=== PATIENT | male | born 1970 ===

== ENCOUNTER 2020-10-26 11:18 | Emergency (ER) | payer MEDICAID, SELFPAY ==
[2020-10-26 12:53] VITALS: BP 133/86; PULSE 83; RESP 16; TEMP 36.8; O2SAT 99; BMI 28.3
--- NOTE | 2020-10-26 14:10 | ED.GENADULT ---
HPI - General Adult General Chief complaint: Upper Respiratory Symptoms Stated complaint: COVID SYMPTOMS Time Seen by Provider: 10/26/20 12:31 Source: patient Mode of arrival: ambulatory Limitations: no limitations History of Present Illness HPI narrative: 50 y/o presents with his significant other with headaches, congestion, body aches, fatigue and diarrhea. He was recently around someone who was later diagnosed with COVID-19. He denies SOB, DONNELLY, or chest pain. He has not taken any mediations for body aches. He denies fevers at home. MD complaint: flu-like symptoms Onset (ago): day(s) (1) Location: head and back Radiation: non-radiation Severity: moderate Quality: aching Pain Consistency: intermittent Relieving factors: rest Exacerbating factors: movement Associated symptoms: headaches and malaise Treatments prior to arrival: none Related Data Allergies Allergy/AdvReac Type Severity Reaction Status Date / Time No Known Allergies Allergy Verified 10/26/20 12:56 Review of Systems Review of Systems: Constitutional: No Fever, No Chills Cardiovascular: No Chest Pain, No SOB, No Orthopnea, No Edema Respiratory: No Cough, No Sputum, No Wheezing, No dyspnea Gastrointestinal: + Nausea, No Vomiting, + Diarrhea, No abdominal Pain Genitourinary: No Dysuria, No Urinary Frequency, No Hematuria Musculoskeletal: No joint pain, + Myalgias Skin: No Skin Lesions, No rash Neuro: + Weakness, No Numbness, No Dizziness, + Headache Psych: No Anxiety/Panic, No Depression Heme/Lymph: No Bruising, No Lymphadenopathy Endocrine: No Polyuria, No Polydipsia PMFSH Past Medical History Attestation statement: The following information was validated with the patient. Social History Social History Advance Directives: No Advance Directives Information Provided: No Physical Exam Vital Signs: Vital Signs: Last Vital Signs Temp 98.3 F 10/26/20 12:53 Pulse 83 10/26/20 12:53 Resp 16 10/26/20 12:53 BP 133/86 10/26/20 12:53 Pulse Ox 99 10/26/20 12:53 Body Mass Index 28.3 Appearance: Alert. Oriented X3. No acute distress. Eyes: normal inspection ENT: Pharynx normal. Neck: Normal inspection. Neck supple. CVS: Normal heart rate and rhythm. Pulses normal. Respiratory: No respiratory distress. Breath sounds normal. Abdomen: Soft and nontender. +BS x4 Skin: Skin warm and dry. Normal skin color. Normal skin turgor. No rashes. Extremities: No lower extremity edema. Neuro: Oriented X 3. No motor deficit. No sensory deficit. Course Course Course Narrative: 50 y/o male presenting with COVID symptoms after known exposure. His VS and exam are normal. COVID swab sent. Reevaluation(s) Reevaluation #1: COVID negative. ?false negative, given known exposure he is high risk. He has been counseled on management, quarantine and self-monitoring of symptoms. Encouraged to get re-tested in 48 hours if remains symptomatic. Stable for d/c. Medical Decision Making Lab Data Labs: Lab Results 10/26/20 Range/Units 13:30 Coronavirus (PCR) NEGATIVE (Negative) Influenza Type A (PCR) NEGATIVE (Negative) Influenza Type B (PCR) NEGATIVE (Negative) RSV RNA Qual (PCR) NEGATIVE (Negative) Discharge Plan Discharge Clinical Impression: Acute viral syndrome Patient Disposition: Home, Self-Care Instructions: Viral Syndrome (ED) Additional Instructions: You were found to be COVID-19 negative today. It is possible that this is a false negative test. If you are still feeling unwell in 2 days, recommend retesting. Your exam and oxygen levels were normal. Rest. Drink plenty of fluids. Do not go out in public while you are feeling ill. Take over the counter cold/flu medications as needed for your symptoms. Take Tylenol and/or Motrin as needed for fevers and body aches. Follow up with your doctor this week. If you shortness of breath worsens , if you develop difficulty breathing or any other concerning symptom come back to the ER for further evaluation. Stand Alone Forms: Work/School Release Print Language: Irish
[2020-10-26 14:30] LABS: Influenza A PCR NEGATIVE (Negative); Influenza B PCR NEGATIVE (Negative); Resp Syncy Virus RNA Qual PCR NEGATIVE (Negative); SARS COV2 PCR INHOUSE NEGATIVE (Negative)
== END 2020-10-26 15:57 | disposition home or self-care (01) ==
PROVIDERS: Physician Assistant; Emergency Provider Emergency Medicine
DX: B34.9 Viral infection, unspecified (principal); R51.9 Headache, unspecified; M79.10 Myalgia, unspecified site; Z20.822 Contact with and (suspected) exposure to COVID-19
CPT/HCPCS: 0241U; 36415; 99283

== ENCOUNTER 2021-01-24 08:20 | Outpatient (REF) | payer MEDICAID, SELFPAY ==
--- NOTE | ~2021-01-24 | XR_ITS ---
EXAMINATION: XR SHOULDER, LEFT CLINICAL INFORMATION: Pain COMPARISON: Previous chest x-ray October 2011 TECHNIQUE: AP external rotation, Grashey, scapular Y, and axillary views of the left shoulder. FINDINGS: Bone alignment is normal. No acute fracture or dislocation is seen. There may be an old left lateral second rib fracture. This appears unchanged from previous chest x-ray. The glenohumeral joint is normal. There is arthritis at the acromioclavicular joint. Soft tissues are unremarkable. XR/XR shoulder LT min 2V IMPRESSION: Arthritis at the acromioclavicular joint.
[2021-01-24 09:10] LABS: MANUAL DIFF FLAG NO
[2021-01-24 09:21] LABS: Basophils Absolute Auto 0.1 X10*3/uL (0.0-0.2); Basophils Percent Auto 1.2 % (0-2); Eosinophils Absolute Auto 0.6 X10*3/uL (0.0-0.4); Eosinophils Percent Auto 8.8 % (0-4); Hematocrit 46.5 % (42-52); Hemoglobin 15.6 g/dl (14.0-18.0); Imm Gran Abs Auto 0.03 X10*3/uL (0.00-0.03); Imm Gran Pct Auto 0.4 % (0.0-0.4); Lymphocytes Absolute Auto 1.8 X10*3/uL (1.2-4.9); Lymphocytes Percent Auto 27.4 % (20-40); Mean Corpuscular HGB Conc 33.5 g/dl (31.0-36.0); Mean Corpuscular Hemoglobin 28.9 pg (27.0-33.0); Mean Corpuscular Volume 86.3 fL (80-98); Mean Platelet Volume 9.6 fL (9.4-12.4); Monocytes Absolute Auto 0.4 X10*3/uL (0.1-1.2); Neutrophils Absolute Auto 3.8 X10*3/uL (2.0-8.3); Neutrophils Percent Auto 56.2 % (45-73); Platelet Count 260 X10*3/uL (160-400); Red Blood Count 5.39 X10*6/uL (4.60-5.80); Red Cell Distribution Width 12.8 % (11.0-16.0); White Blood Count 6.7 X10*3/uL (4.8-10.8)
[2021-01-24 09:30] LABS: Estimated Average Glucose 114 mg/dL; Hemoglobin A1c % 5.6 %
[2021-01-24 09:49] LABS: Alanine Aminotransferase 29 U/L (0-40); Albumin Level 4.4 g/dL (3.5-5.0); Alkaline Phosphatase 87 U/L (39-117); Anion Gap 12 (12-20); Aspartate Amino Transferase 19 U/L (5-37); Bilirubin Direct 0.2 mg/dL (0.0-0.5); Bilirubin Total 0.7 mg/dL (0.0-1.0); Blood Urea Nitrogen 25 mg/dL (9-16); Carbon Dioxide 29 mmol/L (22-29); Chloride 104 mmol/L (96-108); Cholesterol 172 mg/dL; Estimated Glomerular Filt Rate > 60; Glucose Random 107 mg/dL (60-115); HDL Cholesterol 35 mg/dL; LDL Cholesterol Calculated 125 mg/dl; Sodium 140 mmol/L (135-145); Triglycerides 61 mg/dL
[2021-01-24 10:03] LABS: HIV AB/AG Nonreactive (Nonreactive); HIV Num 1 0.06 S/CO (0.00-0.99); ~HepC Num1 0.13 S/CO (0.00-0.79); ~Hepatitis C Antibody Nonreactive (Nonreactive)
[2021-01-24 10:13] LABS: Vitamin D 25-OH Total 17.9 ng/mL (>30)
== END 2021-01-24 08:21 | disposition home or self-care (01) ==
LOC: HO.LAB 08:20
PROVIDERS: PCP Internal Medicine; Visit Provider Internal Medicine
DX: Z00.00 Encounter for general adult medical examination without abnormal findings (principal); Z11.4 Encounter for screening for human immunodeficiency virus [HIV]; M25.512 Pain in left shoulder
CPT/HCPCS: 36415; 73030; 80048; 80061; 80076; 82306; 83036; 85025; 86803; 87389

== ENCOUNTER 2023-05-07 10:21 | Emergency (ER) | payer MEDICAID, SELFPAY ==
--- NOTE | ~2023-05-07 | CT_ITS ---
EXAMINATION: CT ABDOMEN AND PELVIS WITH CONTRAST CLINICAL INFORMATION: Left lower quadrant pain COMPARISON: None TECHNIQUE: Multiple axial images were obtained from the superior aspect of the liver through the pubic symphysis after the administration of 85 mL of intravenous Omnipaque 350. Images were evaluated on independent dedicated 3-D workstation and 3-D images were reconstructed with concurrent radiologist supervision and subsequently interpreted. Oral contrast was not administered. This CT examination was performed using dose optimization techniques as appropriate, variously including the following: *Automated exposure control *Adjustment of mA and/or kV according to patient size (this includes techniques or standardized protocols for targeted exams where dose is matched to indication/reason for exam; i.e. extremities or head) *Use of iterative reconstruction technique DLP: 508 mGy-cm FINDINGS: LUNG BASES: The visualized lung bases are clear. CARDIOMEDIASTINUM: The visualized heart is normal in size without pericardial effusion. No coronary artery calcification. LIVER: Homogeneous in attenuation. Normal in size. GALLBLADDER: Noninflamed. BILIARY SYSTEM: No intrahepatic or extrahepatic biliary dilation. PANCREAS: Homogeneous in attenuation. SPLEEN: Normal in size. GENITOURINARY: Bilateral kidneys demonstrate symmetric enhancement. No perinephric fluid collection. No renal calculi. No hydroureteronephrosis. ADRENAL GLANDS: Unremarkable. REPRODUCTIVE: Prostate present. GASTROINTESTINAL: The visualized alimentary tract is normal in course. No evidence of obstruction. APPENDIX: The appendix is seen in its entirety and is unremarkable. PERITONEUM: Subtle stranding within the central mesentery. No intra-abdominal fluid collection. No pneumoperitoneum. VASCULATURE: The abdominal aorta is normal in course and caliber. Portal and superior mesenteric veins patent. LYMPH NODES: No pathologically enlarged abdominal or pelvic lymph nodes. SOFT TISSUES/MUSCULOSKELETAL: There is no acute fracture or significant focal osseous lesion. CT/CT abdomen pelvis w IV con IMPRESSION: Subtle stranding within the central mesentery tracking to the left lower quadrant, which can be seen in the setting of mesenteric panniculitis. No pathologic lymphadenopathy seen or mesenteric venous thrombosis. Fleischner guidelines were followed.
[2023-05-07 10:36] VITALS: BP 129/78; PULSE 68; RESP 18; TEMP 37; O2SAT 99; BMI 28.3
--- NOTE | 2023-05-07 11:22 | ED.ABDPAIN ---
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 he has no hx of diverticulitis. He had a colonoscopy several years ago. He has not had a fever. He tried tylenol but it did not help. MD elicited complaint: abdominal pain Onset (ago): day(s) (2) Pain Consistency: constant Location: LLQ Severity: moderate Quality: stabbing and aching Radiation: other (left testicle) Migration to: no migration Exacerbating factors: movement Relieving factors: nothing Associated symptoms: nausea Related Data Home Medications Medication Instructions Recorded Confirmed lamotrigine 100 mg tablet 100 mg PO DAILY 02/23/21 (Lamictal) lorazepam 0.5 mg tablet 0.5 mg PO DAILY PRN 02/23/21 naproxen 500 mg tablet 500 mg PO BID 02/23/21 omeprazole 20 mg capsule,delayed 20 mg PO DAILY 02/23/21 release trazodone 50 mg tablet 50 mg PO DAILY 02/23/21 Previous Rx's Medication Instructions Recorded levofloxacin 750 mg tablet 750 mg PO Q24H #7 tabs 05/07/23 morphine 15 mg immediate release 15 mg PO TID PRN pain #10 tabs 05/07/23 tablet ondansetron 4 mg disintegrating 4 mg PO Q8H PRN nausea and 05/07/23 tablet vomiting #20 tabs Allergies Allergy/AdvReac Type Severity Reaction Status Date / Time No Known Allergies Allergy Verified 10/26/20 12:56 Review of Systems Review of Systems Constitutional : No Weight loss, No Fever, No Chills ENT/Mouth : No sore throat, No Rhinorrhea Eyes: No Swelling, No Redness Cardiovascular : No Chest Pain, No SOB, NoEdema Respiratory : No Cough, No Sputum, No Wheezing Gastrointestinal : Positive Nausea, no Vomiting, no Diarrhea, positive abdominal Pain, No Hematochezia, No Melena Genitourinary : No Dysuria, No Urinary Frequency, No Hematuria, No Urgency Musculoskeletal : No joint pain, No Myalgias, No Joint Swelling Skin : No Skin Lesions, No rash Neuro : No Weakness, No Numbness, No Dizziness, No Headache Psych : No Anxiety/Panic, No Depression Heme/Lymph: No Bruising, No Lymphadenopathy Endocrine : No Polyuria, No Polydipsia All other systems reviewed and are negative. [facility] Past Medical History Attestation statement: The following information was validated with the patient. Medical History Bipolar disorder Dysuria Other abnormal glucose Polyuria Social History Social History (Updated 05/07/23 @ 11:50 by Hayley Gama DO) Patient Tobacco Use Status: Tobacco use Unknown Smoked in Last 30 Days: No Use of substances other than those prescribed or required for medical reasons: Yes Substance Use Type: Marijuana Advance Directives: No Advance Directives Information Provided: No Physical Exam ED Vital Signs: Vital Signs - 24 hr 05/07/23 10:36 05/07/23 11:38 05/07/23 15:10 Temperature 98.6 F Pulse Rate 68 64 Respiratory Rate 18 16 16 Blood Pressure 129/78 137/90 H Pulse Oximetry 99 98 Oxygen Delivery Method Room Air Room Air BMI result Body Mass Index 28.3 Appearance: Alert. Oriented X3. No acute distress. Eyes: Pupils equal, round and reactive to light. ENT: Pharynx normal. Neck: Normal inspection. Neck supple. CVS: Normal heart rate and rhythm. Pulses normal. Respiratory: No respiratory distress. Breath sounds normal. Abdomen: Soft and moderate LLQ pain but no mass or hernia felt has mild ttp to L upper testicle region but no swelling and normal color Skin: Skin warm and dry. Normal skin color. Normal skin turgor. Extremities: No lower extremity edema. No calf ttp Neuro: Oriented X 3. No motor deficit. No sensory deficit. Course Course Course Narrative: could be mesenteric panniculitis normal labs and UA Reevaluation(s) Reevaluation #1: pain resolved at this time he does not want to stay for US given wait time and wants to go home - given ttp at spermatic cord will treat as presumed epidydimitis he denies STI concerns. Medical Decision Making Medical Decision Making MDM Narrative: 52 yo male with hx of GERD here wtih LLQ pain on exam but denies v/d or dysuria I feel no mass in that area possible diverticulitis vs renal colic vs epidydmitis at this time will obtain basic labs and CT scan for diverticulitis, IV morphine for pain. If CT scan negative may need scrotal US. Differential Diagnosis Differential Diagnoses: The differential diagnosis associated with the presentation includes renal colic, testicular infection, diverticulitis Admission/Observation Consideration of admission/observation: Escalation of care including admission/observation considered no acute findings, tolerating PO stable for outpatient management with oral antibiotics Lab Data MDM Lab Attestation statement: I reviewed the patient's lab results. 05/07/23 11:28 05/07/23 11:28 Labs: Lab Results 05/07/23 05/07/23 05/07/23 Range/Units 11:28 11:28 13:42 WBC 6.5 (4.8-10.8) X10*3/uL RBC 5.20 (4.60-5.80) X10*6/uL Hgb 15.4 (14.0-18.0) g/dl Hct 45.9 (42.0-52.0) % MCV 88.3 (80.0-98.0) fL MCH 29.6 (27.0-33.0) pg MCHC 33.6 (31.0-36.0) g/dl RDW 11.9 (11.0-16.0) % Plt Count 267 (160-400) X10*3/uL MPV 9.1 L (9.4-12.4) fL Immature Gran % (Auto) 0.5 H (0.0-0.4) % Neut % (Auto) 64.7 (45-73) % Lymph % (Auto) 25.2 (20-40) % [place] % (Auto) 6.5 (2-11) % Eos % (Auto) 2.2 (0-4) % Baso % (Auto) 0.9 (0-2) % Lymph # (Auto) 1.6 (1.2-4.9) X10*3/uL [place] # (Auto) 0.4 (0.1-1.2) X10*3/uL Eos # (Auto) 0.1 (0.0-0.4) X10*3/uL Baso # (Auto) 0.1 (0.0-0.2) X10*3/uL Abs Immat Gran (auto) 0.03 (0.00-0.03) X10*3/uL Absolute Neuts (auto) 4.2 (2.0-8.3) x10*3/uL Absolute Nucleated RBC 0.000 (0.0-0.012) X10*3/uL Nucleated RBC % (auto) 0.0 (0.0-0.2) /100WBC Sodium 139 (135-145) mmol/L Potassium 4.2 (3.3-5.1) mmol/L Chloride 105 (96-108) mmol/L Carbon Dioxide 29 (22-29) mmol/L Anion Gap 9 L (12-20) BUN 20 H (9-16) mg/dL Creatinine 1.10 (0.5-1.4) mg/dL Estim Creat Clear Calc 72.7 Estimated GFR > 60 Random Glucose 106 (60-115) mg/dL Calcium 9.2 (8.4-10.2) mg/dL Magnesium 2.1 (1.6-2.6) mg/dL Total Bilirubin 0.3 (0.0-1.0) mg/dL Direct Bilirubin 0.1 (0.0-0.5) mg/dL AST 19 (5-37) U/L ALT 26 (0-40) U/L Alkaline Phosphatase 88 (39-117) U/L Total Protein 7.3 (6.5-8.0) g/dL Albumin 4.3 (3.5-5.0) g/dL Lipase 21 (8-78) U/L Urine Color Yellow Urine Appearance Clear Urine pH 6.0 (5.0-9.0) Ur Specific [place] 1.015 (1.005-1.025) Urine Protein Negative (Neg-Trace) mg/dL Urine Glucose (UA) Negative (Negative) mg/dL Urine Ketones Negative (Negative) mg/dL Urine Blood Negative (Negative) Urine Nitrite Negative (Negative) Ur Leukocyte Esterase Negative (Negative) Independent Interpretation I performed an independent interpretation of an: CT Scan (no acute findings to explain symptoms) Radiology Impression Discussion of test interpretation with radiology: I have reviewed the radiologist's reading. Independent Historian Clinical information obtained from an independent historian. History obtained from or confirmed by: Spouse External Record Review External record reviewed: Inpatient record Tests considered The following testing was considered but not selected: US but patient does not want to wait treat as presumed epidydimitis Prescription Management I considered prescription management with: Pain Medication and Antibiotic (levofloxacin) Medications Administered Discontinued Medications Generic Name Dose Route Start Last Admin Trade Name Mey PRN Reason Stop Dose Admin Sodium Chloride 1,000 mls @ 999 mls/hr 05/07/23 11:15 05/07/23 12:48 Ns IVCONT 05/07/23 12:15 Infused .Q1H1M WALDEMAR Infusion Iohexol 85 ml 05/07/23 13:51 05/07/23 13:52 Iohexol 350 Mg/Ml 100 Ml Infus..Btl IV 05/07/23 13:52 85 ml ONCE ONE Administration Ketorolac Tromethamine 15 mg 05/07/23 11:15 05/07/23 11:33 Ketorolac Tromethamine 15 Mg/Ml Vial IVPUSH 05/07/23 11:16 15 mg ONCE ONE Administration Morphine Sulfate 4 mg 05/07/23 11:15 05/07/23 11:38 Morphine Sulfate 4 Mg/Ml Cartridge IVPUSH 05/07/23 11:16 4 mg ONCE ONE Administration Protocol Ondansetron HCl 4 mg 05/07/23 11:15 05/07/23 11:35 Ondansetron Hcl 4 Mg/2 Ml Vial IVPUSH 05/07/23 11:16 4 mg ONCE ONE Administration Discharge Plan Discharge Clinical Impression: Pain in left testicle Abdominal pain Qualifiers: Abdominal location: left lower quadrant Qualified Code(s): R10.32 - Left lower quadrant pain Patient Disposition: Home, Self-Care Instructions: Testicle Pain (ED), Abdominal Pain (ED) Additional Instructions: return for fevers vomiting inability to urinate no improvement on antibiotics or any other concerns. while on antibiotics take a probiotic and no strenuous exercise even 5 days after given concern for tendon rupture. talk to your doctor 1 week after treatment about your symptoms. if not improved you may need ultrasound. regreso por fiebres v?mitos incapacidad para orinar sin mejor?a con antibi?ticos o cualquier otra preocupaci?n. mientras estevan antibi?ticos, tome un probi?manas y no brent ejercicio extenuante incluso 5 d?as despu?s de la preocupaci?n por la ruptura del tend?n. hable con woods m?dico 1 semana despu?s del tratamiento acerca de ubaldo s?ntomas. si no mejora, es posible que necesite anil ecograf?a. Prescriptions: New levofloxacin 750 mg tablet 750 mg PO Q24H Qty: 7 0RF ondansetron 4 mg tablet,disintegrating 4 mg PO Q8H PRN (Reason: nausea and vomiting) Qty: 20 0RF morphine 15 mg tablet 15 mg PO TID PRN (Reason: pain) Qty: 10 0RF Rx Instructions: partial fill okay; Partial Fill upon patient request. No Action lorazepam 0.5 mg tablet 0.5 mg PO DAILY PRN naproxen 500 mg tablet 500 mg PO BID trazodone 50 mg tablet 50 mg PO DAILY omeprazole 20 mg capsule,delayed release(DR/EC) 20 mg PO DAILY lamotrigine [Lamictal] 100 mg tablet 100 mg PO DAILY Stand Alone Forms: Work/School Release
[2023-05-07 11:32] LABS: MANUAL DIFF FLAG NO
[2023-05-07] MEDS: Ketorolac Tromethamine 15 MG/ML VIAL IVPUSH (11:33)
[2023-05-07] MEDS: 0.9 % Sodium Chloride 1,000 ML 999 ML IVCONT (11:33)
[2023-05-07] MEDS: ondansetron HCL 4 MG/2 ML VIAL IVPUSH (11:35)
[2023-05-07 11:36] LABS: Basophils Absolute Auto 0.1 X10*3/uL (0.0-0.2); Basophils Percent Auto 0.9 % (0-2); Eosinophils Absolute Auto 0.1 X10*3/uL (0.0-0.4); Eosinophils Percent Auto 2.2 % (0-4); Hematocrit 45.9 % (42.0-52.0); Hemoglobin 15.4 g/dl (14.0-18.0); Imm Gran Abs Auto 0.03 X10*3/uL (0.00-0.03); Imm Gran Pct Auto 0.5 % (0.0-0.4); Lymphocytes Absolute Auto 1.6 X10*3/uL (1.2-4.9); Lymphocytes Percent Auto 25.2 % (20-40); Mean Corpuscular HGB Conc 33.6 g/dl (31.0-36.0); Mean Corpuscular Hemoglobin 29.6 pg (27.0-33.0); Mean Corpuscular Volume 88.3 fL (80.0-98.0); Mean Platelet Volume 9.1 fL (9.4-12.4); Monocytes Absolute Auto 0.4 X10*3/uL (0.1-1.2); Monocytes Percent Auto 6.5 % (2-11); Neutrophils Absolute Auto 4.2 x10*3/uL (2.0-8.3); Neutrophils Percent Auto 64.7 % (45-73); Platelet Count 267 X10*3/uL (160-400); Red Cell Distribution Width 11.9 % (11.0-16.0); White Blood Count 6.5 X10*3/uL (4.8-10.8)
[2023-05-07 11:38] VITALS: RESP 16
[2023-05-07] MEDS: Morphine Sulfate 4 MG/ML CARTRIDGE IVPUSH (11:38)
[2023-05-07 11:48] LABS: Alanine Aminotransferase 26 U/L (0-40); Albumin Level 4.3 g/dL (3.5-5.0); Alkaline Phosphatase 88 U/L (39-117); Anion Gap 9 (12-20); Aspartate Amino Transferase 19 U/L (5-37); Bilirubin Direct 0.1 mg/dL (0.0-0.5); Bilirubin Total 0.3 mg/dL (0.0-1.0); Blood Urea Nitrogen 20 mg/dL (9-16); Calcium 9.2 mg/dL (8.4-10.2); Carbon Dioxide 29 mmol/L (22-29); Chloride 105 mmol/L (96-108); Creatinine Clr Calc Pharmacy 72.7; Estimated Glomerular Filt Rate > 60; Glucose Random 106 mg/dL (60-115); Lipase 21 U/L (8-78); Magnesium 2.1 mg/dL (1.6-2.6); Potassium 4.2 mmol/L (3.3-5.1); Sodium 139 mmol/L (135-145); Total Protein 7.3 g/dL (6.5-8.0)
[2023-05-07 13:50] LABS: Appearance Urine Clear; Color Urine Yellow; Glucose Urine UA Negative (Negative); Leukocyte Esterase Urine Negative (Negative); Nitrite Urine Negative (Negative); Specific Gravity - Urine 1.015 (1.005-1.025); Urine Blood Negative (Negative); Urine Ketones Negative (Negative); Urine Protein Negative (Neg-Trace)
[2023-05-07] MEDS: iohexoL 350 MG/ML 100 ML INFUS..BTL 85 ML IV (13:52)
[2023-05-07 15:10] VITALS: BP 137/90; PULSE 64; RESP 16; O2SAT 98
== END 2023-05-07 16:11 | disposition home or self-care (01) ==
PROVIDERS: Emergency Provider Emergency Medicine
DX: N50.812 Left testicular pain (principal); R10.32 Left lower quadrant pain; R11.0 Nausea; K21.9 Gastro-esophageal reflux disease without esophagitis; F12.90 Cannabis use, unspecified, uncomplicated; Z79.899 Other long term (current) drug therapy
CPT/HCPCS: 36415; 74177; 80048; 80076; 81003; 83690; 83735; 85025; 96361; 96374; 96375; 99284; J1885; J2270; J2405; Q9967

== ENCOUNTER → 2024-09-29 11:57 | Outpatient (BNV) | payer MEDICAID, SELFPAY | PROVIDERS: Emergency Provider Student in an Organized Health Care Education/Training Program; Visit Provider Internal Medicine | DX: R07.9 Chest pain, unspecified (principal) | CPT/HCPCS: 93010 ==

== ENCOUNTER → 2024-09-29 11:58 | Outpatient (BNV) | payer MEDICAID, SELFPAY | PROVIDERS: Emergency Provider Student in an Organized Health Care Education/Training Program; Visit Provider Radiology Diagnostic Radiology | DX: R07.9 Chest pain, unspecified (principal); R05.9 Cough, unspecified | CPT/HCPCS: 71046 ==

== ENCOUNTER 2024-11-04 09:28 | Emergency (ER) | payer OTHER, MEDICAID, SELFPAY ==
--- NOTE | ~2024-11-04 | XR_ITS ---
EXAMINATION: XR WRIST NAVICULAR LEFT HISTORY: hurt at work swollen and painful COMPARISON: There are no prior studies available for comparison. FINDINGS: Four views of the left wrist including a scaphoid view are submitted. Osseous mineralization is normal. There is no fracture or dislocation. The joint spaces are preserved. The soft tissues are unremarkable. XR/XR wrist LT w scaphoid IMPRESSION: Unremarkable examination of the left wrist. Electronically signed by: Baltazar Espinoza MD 11/04/2024 11:06 AM KRYSTEN
[2024-11-04 09:39] VITALS: BP 133/85; PULSE 79; RESP 18; TEMP 36.8; O2SAT 96; BMI 28.7
--- NOTE | 2024-11-04 11:35 | ED_ITS ---
HPI - Extremity Problem General Chief complaint: Extremity Injury, Upper Stated complaint: Wrist injury at work Time Seen by Provider: 11/04/24 11:34 Source: patient and toddler teacher (all interactions with this patient were facilitated with an [facility] pathology manager) Mode of arrival: ambulatory Limitations: language barrier (all interactions with this patient were facilitated with an [facility] pathology manager) History of Present Illness ED Provider: Marcelina Lieberman PA-C HPI Narrative: Patient is a 54 year old assigned male at with a history of bipolar disorder presenting to the emergency department today with left wrist pain. Patient states that while at work he wrenched his left wrist and has been having pain ever since. Patient denies any head strike with the incident, loss of consciousness with the incident, dizziness, lightheadedness, abdominal pain, nausea, vomiting, fever, chills, blurry vision, double vision, loss of vision, chest pain, difficulty breathing, shortness of breath, back pain, night sweats, pain with urination, increased urinary frequency, increased urinary urgency, blood in his urine or stool, syncope or a near syncopal episode, bowel incontinence, bladder incontinence, or any other complaints at this time. Relieving factors: immobilization Exacerbating factors: range of motion Associated symptoms: denies other symptoms Related Data Home Medications ?Medication ?Instructions ?Recorded ?Confirmed lamotrigine 100 mg tablet 100 mg PO DAILY 02/23/21 (Lamictal) lorazepam 0.5 mg tablet 0.5 mg PO DAILY PRN 02/23/21 naproxen 500 mg tablet 500 mg PO BID 02/23/21 omeprazole 20 mg capsule,delayed 20 mg PO DAILY 02/23/21 release trazodone 50 mg tablet 50 mg PO DAILY 02/23/21 Previous Rx's ?Medication ?Instructions ?Recorded levofloxacin 750 mg tablet 750 mg PO Q24H #7 tabs 05/07/23 morphine 15 mg immediate release 15 mg PO TID PRN pain #10 tabs 05/07/23 tablet ondansetron 4 mg disintegrating 4 mg PO Q8H PRN nausea and 05/07/23 tablet vomiting #20 tabs acetaminophen 500 mg tablet 500 mg PO Q6H PRN fever or pain 09/29/24 (Tylenol Extra Strength) #14 tabs fluticasone propionate 50 2 spray intranasal DAILY #16 grams 09/29/24 mcg/actuation nasal spray,suspension (Flonase Allergy Relief) prednisone 20 mg tablet 40 mg (2 x 20 mg) PO DAILY 5 days 09/29/24 #10 tabs naproxen 500 mg tablet 500 mg PO BID 7 days #14 tabs 11/04/24 Allergies Allergy/AdvReac Type Severity Reaction Status Date / Time No Known Allergies Allergy Verified 11/04/24 09:43 Review of Systems Constitutional: Constitutional: Reports no additional constitutional complaints, Denies chills, Denies fever(s) and Denies night sweats Eyes: Eyes: Reports no additional eye complaints, Denies blurry vision, Denies change in vision, Denies diplopia, Denies eye discharge, Denies loss of vision and Denies eye pain ENT: Denies dizziness Cardiovascular: Cardiovascular: Reports no additional cardiovascular complaints, Denies chest pain, Denies lightheadedness, Denies Loss of Consciousness and Denies dyspnea Respiratory: Respiratory: Reports no additional respiratory complaints and Denies dyspnea Gastrointestinal: Gastrointestinal: Reports no additional gastrointestinal complaints, Denies abdominal pain, Denies melena, Denies hematochezia, Denies change in bowel habits and Denies change in stool character Genitourinary: Genitourinary: Reports no additional male genitourinary complaints, Denies hematuria, Denies oliguria, Denies difficulty urinating, Denies dysuria, Denies urinary frequency, Denies urinary hesitancy, Denies urinary incontinence and Denies urinary urgency Musculoskeletal: Musculoskeletal: Reports no additional musculoskeletal complaints, Denies numbness and Denies tingling Comments: left wrist pain Neurologic: Denies dizziness, Denies loss of vision, Denies numbness and Denies tingling Psychiatric: Psychiatric: Reports no additional psychiatric complaints Endocrine: Endocrine: Reports no additional endocrine complaints Hematologic/Lymphatic: Hematologic/Lymphatic: Reports no additional hemato logic/lymphatic complaints Allergic/Immunologic: Allergic/Immunologic: Reports no additional allergic/immunologic complaints PMFSH Past Medical History Attestation statement: The following information was validated with the patient. Source: old records reviewed and nursing notes reviewed Medical History Bipolar disorder Polyuria Other abnormal glucose Dysuria Social History Social History Patient Tobacco Use Status: Tobacco use Unknown Substance Use Type: Marijuana Advance Directives: No Advance Directives Information Provided: Yes Do you have a plan to hurt others: No Plan Physical Exam Vital Signs: Vital Signs: Last Vital Signs Temp 98.2 F 11/04/24 11:49 Pulse 79 11/04/24 11:49 Resp 18 11/04/24 11:49 BP 133/85 11/04/24 11:49 Pulse Ox 96 11/04/24 11:49 O2 Del Method Room Air 11/04/24 11:49 BMI result Body Mass Index 28.7 Const: General: cooperative, no acute distress, alert and awake Nutritional Appearance: well nourished Orientation/consciousness: patient oriented x3 Limitations: no limitations HEENT: Head: Yes normal to inspection and Yes atraumatic Ears: hearing grossly normal bilaterally and external ears normal General nose exam: Normal external nose present, no nasal discharge noted and no epistaxis Face and sinus: Yes normal facial exam, No abrasion and No laceration Mouth: Normal oral and palatal mucosa present, no drooling and no muffled voice Eyes: General: appearance normal, both eyes and all related structures Periorbital: periorbital findings normal Eyelids: Yes eyelids normal Conjunctivae: conjunctivae normal Pupils: Equal, round and reactive pupils present EOM: EOMs intact bilaterally Neck: Neck: Yes normal visual inspection, Yes full ROM and Yes no lymphadenopathy Chest: Chest palpation & inspection: normal inspection of the chest Resp: Effort & Inspection: normal respiratory effort and able to speak in complete sentences GI: Inspection: Yes normal to inspection Neuro: General: patient oriented x3, moves all extremities and CN's II-XI intact bilaterally Cranial nerves: Yes Equal, round and reactive pupils present Cognition (Neuro): normal cognition Extrem: Other: patient was wearing OTC left wrist brace Pain with ROM of the left wrist General: Yes full ROM and Yes capillary refill normal Psych: Appearance: grossly normal Mental Status: mental status grossly normal Affect: normal affect Attitude: cooperative Thought process: Normal thought process present Thought content: Normal thought content pr esent Insight: Good insight present (Psych) Medical Decision Making Medical Decision Making MDM Narrative: Patient is a 54 year old assigned male at with a history of bipolar disorder presenting to the emergency department today with left wrist pain. Patient's physical exam was unremarkable. Patient's left wrist x-ray showed no acute process. I explained my physical exam findings as well as all test results to the patient. I answered all questions asked by the patient. I recommended the patient continuing wearing the OTC brace he had on. I stressed the importance of the patient taking his medication as directed (either prescribed or as the over the counter packaging recommends). I stressed the importance of the patient following up with his primary care provider, work connection, and an orthopedic provider. I stressed the importance of the patient returning to the emergency department immediately if his symptoms were to worsen or if he were to develop any dizziness, shortness of breath, difficulty breathing, chest pain, blurry vision, loss of vision, nausea, vomiting, abdominal pain, fever, chills, back pain, or any other complaints. Patient verbalized agreement and understanding with this treatment plan and discharge. Differential Diagnosis Differential Diagnoses: The differential diagnosis associated with the presentation includes Left wrist sprain Left wrist strain Left wrist fracture Admission/Observation Consideration of admission/observation: Escalation of care including admission/observation considered Patient would have been admitted to the hospital had his work up had any findings where hospital admission was appropriate and his clinical presentation warranted hospital admission. Independent Interpretation I performed an independent interpretation of an: Plain X-Ray Interpretation: My interpretation is in agreement with the radiologist's impression of this imaging study. EXAMINATION: XR WRIST NAVICULAR LEFT HISTORY: hurt at work swollen and painful COMPARISON: There are no prior studies available for comparison. FINDINGS: Four views of the left wrist including a scaphoid view are submitted. Osseous mineralization is normal. There is no fracture or dislocation. The joint spaces are preserved. The soft tissues are unremarkable. XR/XR wrist LT w scaphoid IMPRESSION: Unremarkable examination of the left wrist. Electronically signed by: Baltazar Espinoza MD 11/04/2024 11:06 AM [facility] Dictated By: Baltazar Espinoza MD Signed By: Electronically signed by Baltazar Espinoza MD 11/04/24 1106 Radiology Impression Discussion of test interpretation with radiology: I have reviewed the radiologist's reading. Prescription Management I considered prescription management with: Pain Medication (patient prescribed pain medication) Discharge Plan Discharge Clinical Impression: Left wrist sprain Patient Disposition: Home, Self-Care Instructions: Wrist Injury (ED), Sprain (ED), Wrist Sprain (ED) Additional Instructions: Follow up with your primary care provider, work connection, and an orthopedic provider. Return to the emergency department immediately if your symptoms worsen or if you develop any dizziness, shortness of breath, difficulty breathing, chest pain, blurry vision, loss of vision, nausea, vomiting, abdominal pain, fever, chills, back pain, or any other complaints. Nichole un seguimiento con woods proveedor de atenci?n primaria, conexi?n laboral y un proveedor ortop?dico. Vuelva inmediatamente al servicio de urgencias si ubaldo s?ntomas empeoran o si presenta mareos, falta de aliento, dificultad para respirar, dolor tor?cico, visi?n borrosa, p?rdida de visi?n, n?useas, v?mitos, dolor abdominal, fiebre, escalofr?os, dolor de espalda o cualquier otra molestia. Prescriptions: New naproxen 500 mg tablet 500 mg PO BID 7 Days Qty: 14 0RF No Action levofloxacin 750 mg tablet 750 mg PO Q24H Qty: 7 0RF ondansetron 4 mg tablet,disintegrating 4 mg PO Q8H PRN (Reason: nausea and vomiting) Qty: 20 0RF morphine 15 mg tablet 15 mg PO TID PRN (Reason: pain) Qty: 10 0RF Rx Instructions: partial fill okay; Partial Fill upon patient request. prednisone 20 mg tablet 40 mg PO DAILY 5 Days Qty: 10 0RF acetaminophen [Tylenol Extra Strength] 500 mg tablet 500 mg PO Q6H PRN (Reason: fever or pain) Qty: 14 0RF fluticasone propionate [Flonase Allergy Relief] 50 mcg/actuation spray,suspension 2 spray intranasal DAILY Qty: 16 0RF Rx Instructions: administer into each nostril lorazepam 0.5 mg tablet 0.5 mg PO DAILY PRN naproxen 500 mg tablet 500 mg PO BID trazodone 50 mg tablet 50 mg PO DAILY omeprazole 20 mg capsule,delayed release(DR/EC) 20 mg PO DAILY lamotrigine [Lamictal] 100 mg tablet 100 mg PO DAILY Referrals: [facility] [Provider Group] (Call to establish and follow up with an orthopedic provider. Llamar para establecer y hacer un seguimiento con un proveedor de ortopedia.) [facility] [Provider Group] (Given this was a work place injury, call to establish and follow up with work connection. Dado que se trataba de anil lesi?n en el lugar de trabajo, llamar para establecer y seguir con la conexi?n de trabajo.) [facility] [Primary Care Provider] - Stand Alone Forms: Work/School Release Interventions: ED Discharge Assessment Last Done: 11/04/24 11:49 Discharge Date/Time: 11/04/24 11:50 Print Language: Mongolian
[2024-11-04 11:49] VITALS: BP 133/85; PULSE 79; RESP 18; TEMP 36.8; O2SAT 96
--- OUTSIDE RECORDS SUMMARY | 2024-11-04 12:12 | XMS_ITS | Clinical Summary ---
Author Organization [facility] Address [address] [place] [address] Care Team Providers Care Industrial Gas Servicer Name Role Phone Ashlyn Ryder MD Primary Care Provide r Allergies No known active allergies Medications acetaminophen (Tylenol) 500 MG tablet Take 1 tablet (500 mg) by mouth every 6 (six) hours if needed for mild pain for up to 20 doses. 20 tablet Active Additional Information Patient not taking.Reported on 06/15/2024 ibuprofen 600 MG tablet Take 1 tablet (600 mg) by mouth every 6 (six) hours if needed for mild pain for up to 20 doses. 20 tablet Active Additional Information Patient not taking.Reported on 06/15/2024 Active Problems Problem Noted Date Diagnosed Date Dental calculus 07/12/2024 Severe dental caries 06/15/2024 Dental abscess 05/20/2023 Periodontal disease 05/20/2023 Encounters Date Type Department Care Team Description 11/04/2024 Orders Only [facility] External Provider, [facility] 09/29/2024 Orders Only GENERIC EXTERNAL DATA DEPARTMENT Provider, Generic External Data 09/06/2024 8:30 AM EST Office Visit [facility] ADULT D[facility] [address] [place] [address] Jc Blanco DMD 08/12/2024 2:00 PM EST Office Visit [facility] [address] [place] [address] Jc Blanco DMD from Last 3 Months Social History Tobacco Use Types Packs/Day Years Used Date Smoking Tobacco: Never Passive Smoke Exposure: Never Smokeless Tobacco: Never Tobacco Cessation:Counseling Given: No Alcohol Use Standard Drinks/Week Comments Never 0 (1 standard drink = 0.6 oz pur e alcohol) Sex and Gender Information Value Date Recorded Sex Assigned at Male 07/22/2022 10:18 AM EDT Legal Sex Male 10:18 AM EDT Gender Identity Male 07/22/2022 10:18 AM EDT Sexual Orientation Straight 07/22/2022 10 :18 AM EDT Last Filed Vital Signs Vital Sign Reading Time Taken Comments Blood Pressure 122/74 07/12/2024 9:48 AM EDT Pulse - - Temperature - - Respiratory Rate - - Oxygen Saturation - - Inhaled Oxygen Concentration - - Weight - - Height - - Body Mass Index - - Plan of Treatment Upcoming Encounters Date Type Department Care Team (Late st Contact Info) Description 11/18/2024 2:00 PM EST Office Visit [facility] ADULT [facility] [address] [place] [address] [place] [address] [place] [address] Health Maintenance Due Date Last Done Comments CT Colonography 1970 Colonoscopy 1970 Colorectal Cancer Screening 1970 Depression Screening 1970 FIT DNA/Cologuard 1970 FIT 1970 FOBT 1970 Lipid Panel 1970 SDOH Screening 1970 Sigmoidoscopy 1970 Alcohol/Substance Use Screening 1982 DTaP/Tdap/Td Vaccines (2 - T d or Tdap) 07/30/2020 07/30/2010 Pneumococcal Vaccine: 50+ Years (1 of 1 - PCV) 2020 Zoster Vaccines (1 of 2) 2020 COVID-19 Vaccine (1 - 2023-2 5 season) 2024 Influenza Vaccine (#1) 2024 Dental Oral Exam 11/05/2024 05/04/2024 Dental Prophylaxis 01/11/2025 07/12/2024 Dental X-Ray: Bitewings 05/05/2025 05/04/2024 Tobacco Screening 09/06/2025 09/06/2024 Dental X-Ray: Full Mouth 05/21/2027 024, 05/04/2024, 05/20/2023 RSV Patients and Patients Aged 60 years or older (1 - 1-dose 75+ series) 2045 Hepatitis B Vaccines Completed 06/03/2011, 12/07/2010, 10/17/2010 HIV Screening Completed 01/24/2021 Hepatitis C Screening Completed 01/24/2021 HIB Vaccines Aged Out No longer eligi ble based on patient's age to complete this topic HPV Vaccines Aged Out No longer eligi ble based on patient's age to complete this topic Hepatitis A Vaccines Aged Out No long er eligible based on patient's age to complete this topic IPV Vaccines Aged Out No longer eligi ble based on patient's age to complete this topic Meningococcal Vaccine Aged Out No brooklynn george eligible based on patient's age to complete this topic RSV under 20 months Aged Out No longe r eligible based on patient's age to complete this topic Rotavirus Vaccines Aged Out No longer eligible based on patient's age to complete this topic Procedures Procedure Name Priority Date/Time Associated Diagnosis Comments XR WRIST LT W SCAPHOID Routine 11/04/2024 10:25 AM EST XR CHEST 2 VIEWS Routine 09/29/2024 12:4 0 PM EST SARS COV2/INFLUENZA A/B AND RSV RNA QL NAAT Routine 09/29/2024 12:08 PM EST STREP A NUCLEIC ACID Routine 09/29/2024 12:02 PM EST CASE PRESENTATION, DETAILED AND EXTENSIVE TREATMENT PLANNING Routine 09/06/2024 8:30 AM EST 19,30,31 MANDIBULAR PARTIAL DENTURE - RESIN BASE (INCLUDING, RETENTIVE/CLASPING MATERIALS, RESTS, AND TEETH) Routine 09/06/2024 8:30 AM EST WAX TRY IN Routine 08/12/2024 2:00 PM EST PROPHYLAXIS - ADULT Routine 07/12/2024 1 0:00 AM EDT Periodontal disease Dental calculus PANORAMIC RADIOGRAPHIC IMAGE Routine 05/20/2024 11:30 AM EDT INTRAORAL - COMPLETE SERIES OF RADIOGRAPHIC IMAGES Routine 05/04/2024 3:15 PM EDT PERIODIC ORAL EVALUATION - ESTABLISHED PATIENT Routine 05/04/2024 3:15 PM EDT ZZZ HISTORICAL HEPATITIS C ANTIBODY RFLX Routine 01/24/2021 8:43 AM EDT MANSOOR HISTORICAL HIV AB/AG Routine 01/24/2021 8:43 AM EDT from Last 3 Months or Most Recently Relevant to Health Maintenance Results * XR WRIST LT W SCAPHOID (11/04/2024 10:25 AM EST) Anatomical Region Laterality Modality Upper Extremities, Wrist Left Radiogr aphic Imaging 11/04/2024 10:2 5 AM EST Narrative 11/04/2024 11:09 AM EST ? [facility] ?[address] ?[place] [address] ?XRay Report ? Signed ? Patient: Wilbur CastilloesDelgado ?MR#: M ?? [id number] ? : 1970 ?Acct:[id number] ? Age/Sex: 54 / M ?ADM Date: 11/04/24 ? Loc: HO.ED ? Attending Dr: ? Ordering Physician: Generic ED Physician ?? Date of Service: 11/04/24 ?? Procedure(s): XR wrist LT w scaphoid ?? Accession Number(s): [id number] ? cc: Generic ED Physician; [facility] ? EXAMINATION: ??XR WRIST NAVICULAR LEFT ? HISTORY: hurt at work swollen and painful ? COMPARISON: There are no prior studies available for comparison. ? FINDINGS: ? Four views of the left wrist including a scaphoid view are submitted. ? Osseous mineralization is normal. ??There is no fracture or dislocation. ?? The joint spaces are preserved. ??The soft tissues are unremarkable. ? XR/XR wrist LT w scaphoid ?? IMPRESSION: ? Unremarkable examination of the left wrist. ? Electronically signed by: ??Baltazar Espinoza MD ??11/04/2024 11:06 AM EST ?? RP ? Dictated By: ?Baltazar Espinoza MD ? Signed By: ?<Electronically signed by Baltazar Espinoza MD in OV> ?11/04/24 1106 ? DD/ 1025 ? TD/TT: 11/04/24 1054 ? Drier: ? Procedure Note Donotuseinterpreter, Image - 11/04/[address] [address] XRay Report Signed Patient: Delgado Ibrahim MMR#: M [id number] : 1970Acct:[id number] Age/Sex: 54 / MADM Date: 11/04/24 Loc: HO.ED Attending Dr: Ordering Physician: Generic ED Physician Date of Service: 11/04/24 Procedure(s): XR wrist LT w scaphoid Accession Number(s): [id number] cc: Generic ED Physician; [facility] EXAMINATION: XR WRIST NAVICULAR LEFT HISTORY: hurt at work swollen and painful COMPARISON: There are no prior studies available for comparison. FINDINGS: Four views of the left wrist including a scaphoid view are submitted. Osseous mineralization is normal. There is no fracture or dislocation. The joint spaces are preserved. The soft tissues are unremarkable. XR/XR wrist LT w scaphoid IMPRESSION: Unremarkable examination of the left wrist. Electronically signed by: Baltazar Espinoza MD 11/04/2024 11:06 AM EST RP Dictated By: Baltazar Espinoza MD Signed By: <Electronically signed by Baltazar Espinoza MD in OV> 11/04/24 1106 DD/ 1025 TD/TT: 11/04/24 1054 Drier: [facility] External Provider IMG XR PROCEDURES Edited Result - Final * XR Chest 2 Views (09/29/2024 12:40 PM EST) Anatomical Region Laterality Modality Chest Radiographic Sheba ging 09/29/2024 12:4 0 PM EST Narrative 09/29/2024 1:28 PM EST ? [facility] ?[address] ?[place] [address] ?XRay Report ? Signed ? Patient: Colon Romero,Yoel ?MR#: M ?? [id number] ? : 1970 ?Acct:[id number] ? Age/Sex: 54 / M ?ADM Date: /08/25 ? Loc: HO.ED ? Attending Dr: ? Ordering Physician: Rachle Sharp ?? Date of Service: 09/29/24 ?? Procedure(s): XR chest 2V ?? Accession Number(s): [id number] ? cc: [facility]; Rachel Sharp ? EXAMINATION: ?? XR CHEST ? CLINICAL INFORMATION: ?? cp, fever, cough ? COMPARISON: ?? X-ray dated November 09, 2011. ? TECHNIQUE: ?? 2 views of the chest were obtained. ? FINDINGS: ?? No consolidation, pleural effusion or pneumothorax. No hyperinflation. ?? Cardiomediastinal silhouette is normal in size. ?? Osseous structures are intact. ? XR/XR chest 2V ?? IMPRESSION: ?? No acute airspace disease. ? Electronically signed by: ??Eh Warren MD ??09/29/2024 01:26 PM ?? EST RP ? Dictated By: ?Eh Freitas MD ? Signed By: ?<Electronically signed by Eh Cid MD in OV> ? 09/29/24 1326 ? DD/ 1240 ? TD/TT: 09/29/24 1245 ? Drier: ? Procedure Note Odalys Martinez - 09/29/2024 [place] [address] XRay Report Signed Patient: Delgado Ibrahim MMR#: M [id number] : 1970Acct:[id number] Age/Sex: 54 / MADM Date: 09/29/24 Loc: HO.ED Attending Dr: Ordering Physician: Rachel Sharp Date of Service: 09/29/24 Procedure(s): XR chest 2V Accession Number(s): [id number] cc: [facility]; Rachel Sharp EXAMINATION: XR CHEST CLINICAL INFORMATION: cp, fever, cough COMPARISON: X-ray dated November 09, 2011. TECHNIQUE: 2 views of the chest were obtained. FINDINGS: No consolidation, pleural effusion or pneumothorax. No hyperinflation. Cardiomediastinal silhouette is normal in size. Osseous structures are intact. XR/XR chest 2V IMPRESSION: No acute airspace disease. Electronically signed by: Eh Warren MD 09/29/2024 01:26 PM EST Dictated By: Eh Freitas MD Signed By: <Electronically signed by Eh Cid MDin OV> 09/29/24 1326 DD/ 1240 TD/TT: 09/29/24 1245 Drier: [facility] External Provider IMG XR PROCEDURES Edited Result - Final * SARS-CoV-2 RNA, Influenza A/B, and RSV RNA, Ql NAAT (09/29/2024 12:08 PM EST) Influenza A PCR NEGATIVE Negative [facility] Influenza B PCR NEGATIVE Negative [facility] Resp Syncy Virus RNA Qual PCR NEGATIVE Negative [facility] SARS COV2 PCR NEGATIVE Negative [facility] Comment:All test results mus t be correlated with clinical findings.Negative results do not preclude SARS-CoV2, influenza Avirus, influenza B virus and/or RSV infectionand should not be used as the sole basis for treatment orother patient management decisions. Negative results must becombined with clinical observations, patient history, andepidemiological information.This test has not been evaluated for monitoring treatment ofinfection.This test has been authorized by the FDA under an EmergencyUse Authorization (EUA) for use by authorized laboratories.Testing performed on the [employer] GeneXpert utilizingreal-time RT-PCR.All SARS CoV2 and positive influenza A/B results arereported to [facility]. 09/29/2024 12:0 8 PM EST 09/29/2024 12:15 PM EST Generic External Data Provider LAB MICROBIOLOGY - GENERAL ORDERABLES Final Result [facility] [address] [place] [address] [phone] * Strep A Nucleic Acid (09/29/2024 12:02 PM EST) IDNOW SERIAL# [id number] [facility] Strep A Nucleic Acid Negative Negative [facility] Comment:All test results mus t be correlated with clinical findings.This test has not been evaluated for monitoring treatment ofinfection.Additional follow-up testing using the culture method isrequired if the result is negative and clinical symptomspersist, or in the event of an acute rheumatic feveroutbreak. 09/29/2024 12:0 2 PM EST 09/29/2024 12:15 PM EST us Generic External Data Provider LAB MICROBIOLOGY - GENERAL ORDERABLES Final Result Performing Organization Address City/[facility]/ZIP Co de Phone Number [facility] [address] [place] [address] [phone] * HEPATITIS C ANTIBODY RFLX (01/24/2021 8:43 AM EDT) [facility] Hepatitis C Antibody Nonreactive Nonreactive [facility] Comment: Antibodies to HCV not detected; does not exclude early acute HCV infection. 01/24/2021 8:43 AM EDT us Ashlyn Fish MD HISTORICAL/NON ORDERA BLE LABS Final Result Performing Organization Address City/[facility]/ZIP Co de Phone Number [facility] [address] * HIV AB/AG (01/24/2021 8:43 AM EDT) Pathologist [facility] HIV AB/AG Nonreactive Nonreactive [facility] Comment: HIV-1 p24 Ag and/or HIV-1/HIV-2 Ab not detected. ?? A test result that is nonreactive does not exclude the possibility of exposure to or infection with HIV-1 and/or HIV-2. Nonreactive results in this assay for individuals with prior exposure to HIV-1 and/or HIV-2 may be due to antigen and antibody levels that are below the limit of detection of this assay. ?? The [employer] Screen Painter HIV Ag/Ab Combo assay result and supplemental assay results should be interpreted in conjunction with the patient's clinical presentation, history and other laboratory results. ??If the results are inconsistent with clinical evidence, additional testing is suggested to confirm the result. 01/24/2021 8:43 AM EDT Ashlyn Fish MD HISTORICAL/NON ORDERA BLE LABS Final Result Performing Organization Address City/State/[facility] Co de Phone Number [facility] [address] from Last 3 Months or Most Recently Relevant to Health Maintenance Insurance [facility] MEDICAID STAND ADULT Care Teams Industrial Gas Servicer Relationship Specialty Start Date End Date Ashlyn Ryder MD [address] [place] [address] PCP - General Family Medicine 05/01/22
--- OUTSIDE RECORDS SUMMARY | 2024-11-04 12:12 | XMS_ITS | Clinical Summary ---
Author Organization [facility] Address [address] [place] [address] Care Team Providers Care Hand Spring Repairer Helper Name Role Phone Salud Bahtti MD Primary Care Provider Unava ilable Allergies No known active allergies Medications Medication Sig Dispensed Refills Start Date End Date Status loratadine (CLARITIN) 10 MG tablet Take 1 Tab by mouth daily. 30 Tab 5 08/09/2015 Active Active Problems Problem Noted Date Depression Immunizations Name Administration Dates Next Due Influenza (> 6 Months) 08/09/2015 Family History Medical History Relation Name Comments No Known Problems Brother x 4; estra nged No Known Problems Daughter 11/06/17: a ge 26 Hypertension Father Cancer of the Stomach Maternal Grandmother Diabetes Mother Hypertension Mother No Known Problems Sister x 6; estra nged No Known Problems Son 1 11/06/17: a ge 28 No Known Problems Son 2 11/06/17: a ge 27 CA Breast Negative Hx CA Colon Negative Hx CA Ovarian Negative Hx Relation Name Status Comments Brother Alive Daughter Alive Father Alive Maternal Grandfather Maternal Grandmother Mother Alive Paternal Grandfather Paternal Grandmother Sister Alive Son 1 Alive Son 2 Alive Social History Tobacco Use Types Packs/Day Years Used Date Smoking Tobacco: Never Smokeless Tobacco: Never Alcohol Use Standard Drinks/Week Comments Yes 0 (1 standard drink = 0.6 oz pur e alcohol) Sex Assigned at Date Recorded Not on file Last Filed Vital Signs Vital Sign Reading Time Taken Comments Blood Pressure 132/81 11/06/2017 1:27 PM EST Pulse 73 11/06/2017 1:27 PM EST Temperature 37.1 ??C (98.7 ??F) 11/06/2017 1:27 PM ES T Respiratory Rate 16 11/06/2017 1:27 PM EST Oxygen Saturation - - Inhaled Oxygen Concentration - - Weight 78 kg (172 lb) 11/06/2017 1:27 PM EST Height 162.6 cm (5' 4 ) 11/06/2017 1:27 PM EST Body Mass Index 29.52 11/06/2017 1:27 PM EST Plan of Treatment Health Maintenance Due Date Last Done Comments Covid-19 Vaccine (#1) 02/04/1971 TOBACCO CHECK/ADVISE 1988 BASELINE HEALTH EXAM 40-64 11/06/201911/06, 08/10/2015, 08/09/2015 COLON CANCER SCREENING 2020 SHINGLES VACCINE (1 of 2) 2020 CHOLESTEROL SCREENING 08/10/2020 08/10/2015 DTAP/TDAP/TD (2 - Td or Tdap) 03/02/2024 (External Completion) INFLUENZA (#1) 2024 11/06/2017 (Refu sed), 08/09/2015 BMI CHECK/ADVISE 09/22/2024 11/06/2017, 08/09/2015 PNEUMOCOCCAL VACCINE FOR HIG H RISK PATIENTS (#1) 2035 Care Teams Hand Spring Repairer Helper Relationship Specialty Start Date End Date Salud Bhatti MD PCP - General Internal Medicine 10/28/17
== END 2024-11-04 11:50 | disposition home or self-care (01) ==
PROVIDERS: Emergency Provider Emergency Medicine Emergency Medical Services
DX: S63.502A Unspecified sprain of left wrist, initial encounter (principal); M25.532 Pain in left wrist; X50.1XXA Overexertion from prolonged static or awkward postures, initial encounter; Y93.9 Activity, unspecified; Y92.9 Unspecified place or not applicable; Y99.0 Civilian activity done for income or pay
CPT/HCPCS: 73110; 99282; 99283

== ENCOUNTER → 2024-11-04 10:25 | Outpatient (BNV) | payer OTHER, MEDICAID, SELFPAY | PROVIDERS: Emergency Provider Emergency Medicine Emergency Medical Services; Visit Provider Radiology Diagnostic Radiology | DX: M25.532 Pain in left wrist (principal); R22.32 Localized swelling, mass and lump, left upper limb | CPT/HCPCS: 73110 ==